=== PATIENT | male | born 1960 | race Asian ===

== ENCOUNTER 2019-07-03 14:51 | Outpatient (CLI) | payer BC | END 2019-07-03 19:41 | disposition home or self-care (01) | LOC: US 14:51 | DX: R53.83 Other fatigue (principal) ==

== ENCOUNTER 2019-09-24 08:29 | Outpatient (CLI) | payer BC | END 2019-09-24 21:33 | disposition home or self-care (01) | LOC: US 08:29 | DX: R74.8 Abnormal levels of other serum enzymes (principal); E78.5 Hyperlipidemia, unspecified ==

== ENCOUNTER 2020-11-12 13:33 | Outpatient (CLI) | payer BC | END 2020-11-12 20:31 | disposition home or self-care (01) | LOC: RAD 13:33 | PROVIDERS: ATTEND Nurse Practitioner Family | DX: M25.561 Pain in right knee (principal); J18.9 Pneumonia, unspecified organism ==

== ENCOUNTER 2021-06-16 07:57 | Outpatient (CLI) | payer BC | END 2021-06-16 18:56 | disposition home or self-care (01) | LOC: CT 07:57 | PROVIDERS: ATTEND Nurse Practitioner Family | DX: R17 Unspecified jaundice (principal); R74.8 Abnormal levels of other serum enzymes | CPT/HCPCS: 36415; 82565; 84520; Q9963 ==

== ENCOUNTER 2023-03-03 10:35 | Outpatient (CLI) | payer BC | END 2023-03-03 19:49 | disposition home or self-care (01) | LOC: RAD 10:35 | PROVIDERS: ATTEND Nurse Practitioner Family | DX: M25.561 Pain in right knee (principal); M25.511 Pain in right shoulder ==